=== PATIENT | male | born 1980 | race Caucasian/White ===

== ENCOUNTER 2019-11-15 16:13 | Observation (INO) | payer BC, SELFPAY ==
[2019-11-15] VITALS (7 sets, daily range): BP systolic 125–140; BP diastolic 81–91; PULSE 60–88; RESP 18–21; TEMP 35.6–36.6; O2SAT 97–99; BMI 29.1
--- NOTE | ~2019-11-15 | XR_ITS ---
EXAMINATION: XR chest 2V EXAM DATE: 11/15/2019 17:52 INDICATION: Mid chest pain. TECHNIQUE: Frontal and lateral projections of the chest obtained and reviewed. There is no prior alisha dy for comparison. FINDINGS: The lungs are clear. There are no pleural effusions. The cardiomediastinal silhouette is within normal limits. There is no pneumothorax suspected. The bones and soft tissues are unremarkab le. IMPRESSION: Normal chest x-ray exam. Reviewed, dictated and finalized at location A. IMPRESSION: Normal chest x-ray exam.
--- NOTE | 2019-11-15 16:19 | ECG_ITS ---
Measurements Intervals [place] Rate: 68 P: 55 MI: 168 QRS: 31 QRSD: 86 T: 10 QT: 376 QTc: 402 Interpretive Statements SINUS RHYTHM NORMAL ECG Electronically Signed On 11-15-2019 20:12:18 CDT by Mat Catalan D.O.
[2019-11-15 16:33] LABS: Basophils Absolute Auto 0.1 K/mm3 (0.0-0.1); Basophils Percent Auto 0.7 % (0.2-1.2); Eosinophils Absolute Auto 1.1 K/mm3 (0-0.3); Eosinophils Percent Auto 10.5 % (0-4.4); Hematocrit 47.9 % (42.0-52.0); Hemoglobin 16.4 g/dL (14.0-18.0); Immature Granulocyte Absolute 0.02 K/mm3 (0.00-0.031); Immature Granulocyte Percent A 0.2 % (0-0.5); Lymphocytes Absolute Auto 3.18 K/mm3 (0.9-3.2); Lymphocytes Percent Auto 31.8 % (18.3-44.2); Mean Corpuscular HGB Conc 34.2 g/dl (32-36); Mean Corpuscular Hemoglobin 28.6 pg (26-34); Mean Corpuscular Volume 83.4 fl (80-100); Monocytes Absolute Auto 0.6 K/mm3 (0.1-0.6); Neutrophils Absolute Auto 5.1 K/mm3 (1.3-6.7); Neutrophils Percent Auto 50.8 % (45.5-73.1); Platelet Count Result 290 k/mm3 (150-375); Red Blood Count 5.74 M/mm3 (4.6-6.20); Red Cell Distribution Width 12.4 % (11.5-14.5)
[2019-11-15 16:45] LABS: Anion Gap 9 mmol/L (8-16); Blood Urea Nitrogen 15 mg/dL (9-20); Calcium 9.2 mg/dL (8.4-10.2); Carbon Dioxide 28 mmol/L (22-30); Chloride 99 mmol/L (98-107); Estimated CRCL calculation 90 ml/min; Estimated Glomerular Filt Rate > 60; Glucose 112 mg/dL (75-110); Sodium 136 mmol/L (137-145)
[2019-11-15] MEDS: KETOROLAC 30 MG/ML VIAL (*BKC) IV PUSH (18:03)
--- NOTE | 2019-11-15 18:12 | ED.GENADULT ---
HPI - General Adult General Chief complaint: Shortness of Breath/Dyspnea Stated complaint: burning in chest, pcp wants cxr Time Seen by Provider: 11/15/19 17:48 Source: RN notes reviewed History of Present Illness HPI narrative: Patient presents emergency department from home for chest pain. Patient states since Wednesday has had pain in the upper midsternal chest that does not radiate. The pain is described as a burning and pressure is worse with exertion and improved with rest. Patient states he was seen by his PCP and referred to the ER for further evaluation. States he did have a negative COVID test. He denies any previous cardiac history denies any fevers or chills abdominal pain nausea vomiting or any other symptoms Related Data Home Medications Medication Instructions Recorded Confirmed No Home Medications 11/15/19 11/15/19 Allergies Allergy/AdvReac Type Severity Reaction Status Date / Time No Known Allergies Allergy Verified 11/15/19 17:35 Review of Systems Review of Systems: Narrative: Gen.: Denies fevers or chills Eyes: Denies eye pain or visual change ENT: Denies congestion Respiratory: Reports shortness of breath CV: Reports chest pain GI: Denies abdominal pain nausea, emesis or diarrhea denies burning, urgency, frequency or hematuria Musculoskeletal: Denies back pain or muscle pain Neuro: Denies numbness, tingling, weakness or focal weakness Skin: Denies rash Except as documented, all other systems reviewed and negative PMFSH Past Medical History Medical History (Updated 11/15/19 @ 18:48 by Ra Lancaster DO) Patient denies significant medical history Social History Social History (Updated 11/15/19 @ 18:12 by Ra Lancaster DO) Smoking status: Former smoker Exam Narrative: Exam Narrative: APPEARANCE: No acute distress, nontoxic, resting in bed EYES: EOMI HEENT: Normocephalic, atraumatic, OMM RESPIRATORY: No respiratory distress Clear to auscultation bilaterally with no rhonchi wheezing or rales. CARDIOVASCULAR: Regular rate and rhythm without murmurs rubs or gallops. ABDOMINAL: Soft, nontender, nondistended, no rebound or guarding MUSCULOSKELETAl: Moves all extremities. No clubbing, cyanosis or edema. NEURO: Awake and alert. Following commands, speech normal, no focal deficits SKIN:: Warm, dry. No rashes lesions or abrasions PSYCHIATRIC: Normal affect/mood, Course Course Emergency Course: Patient states chest pain is resolved at this time Discussed with Dr. Rashid presentation work-up. Agrees with admission of the chest pain center at this time Discussed with patient and family results of workup and diagnosis. Discussed need for admission. Patient and family understand and agree to current treatment plan Vital Signs Vital signs: Vital Signs Temperature 97.9 F 11/15/19 16:16 Pulse Rate 88 11/15/19 16:16 Respiratory Rate 20 11/15/19 16:16 Blood Pressure 140/91 H 11/15/19 16:16 Pulse Oximetry 98 11/15/19 16:16 Temperature 97.9 F 11/15/19 16:16 Pulse Rate 78 11/15/19 18:59 Respiratory Rate 21 H 11/15/19 18:59 Blood Pressure 136/87 11/15/19 18:59 Pulse Oximetry 98 11/15/19 18:59 Medical Decision Making Vital Signs Vital Signs: Vital Signs Temperature 97.9 F 11/15/19 16:16 Pulse Rate 88 11/15/19 16:16 Respiratory Rate 20 11/15/19 16:16 Blood Pressure 140/91 H 11/15/19 16:16 Pulse Oximetry 98 11/15/19 16:16 Temperature 97.9 F 11/15/19 16:16 Pulse Rate 78 11/15/19 18:59 Respiratory Rate 21 H 11/15/19 18:59 Blood Pressure 136/87 11/15/19 18:59 Pulse Oximetry 98 11/15/19 18:59 Lab Data Result diagrams: 11/15/19 16:27 11/15/19 16:27 Labs: Lab Results 11/15/19 11/15/19 11/15/19 Range/Units 16:27 16:27 16:27 WBC 10.0 (4.5-10.0) K/mm3 RBC 5.74 (4.6-6.20) M/mm3 Hgb 16.4 (14.0-18.0) g/dL Hct 47.9 (42.0-52.0) % MCV 83.4 (80-100) fl
[2019-11-15 18:30] LABS: D Dimer 0.27 ug/mL (<0.48)
[2019-11-15 18:51] LABS: Troponin I < 0.012 ng/mL (0.000-0.034)
[2019-11-15] MEDS: ASPIRIN 81 MG CHEWABLE TABLET 324 MG PO (18:57)
[2019-11-15 19:21] LABS: Cholesterol 232 mg/dL (0-200); HDL Direct 40 mg/dL; Triglycerides 212 mg/dL (<150)
[2019-11-15 19:32] LABS: LDL Cholesterol Direct 153 mg/dL
--- NOTE | 2019-11-15 21:54 | ECG_ITS ---
Measurements Intervals [place] Rate: 62 P: 37 VA: 173 QRS: 16 QRSD: 81 T: 5 QT: 389 QTc: 395 Interpretive Statements SINUS RHYTHM NONSPECIFIC T-WAVE ABNORMALITY- INFERIOR LEADS BORDERLINE ECG Electronically Signed On 11-16-2019 7:03:37 CDT by Mat Catalan D.O.
[2019-11-15 22:39] LABS: Troponin I < 0.012 ng/mL (0.000-0.034)
[2019-11-16] VITALS (17 sets, daily range): BP systolic 114–141; BP diastolic 67–87; PULSE 52–88; RESP 14–18; TEMP 35.9–36.6; O2SAT 97–100
--- NOTE | 2019-11-16 00:54 | ECG_ITS ---
Measurements Intervals [place] Rate: 56 P: 13 RI: 180 QRS: 49 QRSD: 86 T: 53 QT: 445 QTc: 433 Interpretive Statements SINUS BRADYCARDIA WITH SINUS ARRHYTHMIA BORDERLINE ECG Electronically Signed On 11-16-2019 7:04:21 CDT by Mat Catalan D.O.
[2019-11-16 01:31] LABS: Troponin I < 0.012 ng/mL (0.000-0.034)
--- NOTE | 2019-11-16 06:45 | PC.NURSE ---
KATHRIN DELAROSA, A ORTHOPEDIC CAST SPECIALIST STATUS PT., WAS TRANSFERRED FROM IMU 205.1 VIA WC TO ORTHOPEDIC CAST SPECIALIST 6. AWAKE AND ALERT, ORIENTED X 4. REPORTS ONLY INTERMITTANT UPPER CHEST BURN , WORSE W/ INSPIRATION. NO OTHER C/O PAIN. ORIENTED TO ORTHOPEDIC CAST SPECIALIST 6 AND PLAN OF CARE. WILL CONTINUE TO MONITOR. REPORT WAS RECEIVED FROM SLAVA GRAHAM RN.
--- NOTE | 2019-11-16 08:15 | PC.NURSE ---
DR. MENDEZ HERE TO SEE PT. CONDITION UPDATE GIVEN.
--- NOTE | 2019-11-16 08:15 | PM.IMHP ---
H&P: HPI History of Present Illness Date/Time: Date of service: 11/16/19 08:15 Chief complaint: chest pain Narrative: Dionisio Calixto is a 38 year old male with no significant past medical illness . 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 The burning chest sensation got worse when he takes a deep breath. The pain persisted. and was associated with mild dry cough. next day he visited his PCP and ordered COVID test that came out negative. that pain in his chest continued intermittently and this morning he still has it. denies fever, chills, sick contacts, lower limb edema. troponins x3 negative, EKG reviewed myself looks unremarkable and shows normal sinus rhythm. Chest x-ray reviewed myself is unremarkable. D-dimer negative family history: adopted. does not know his family. surgical history and medical history: none. Review of Systems Review of Systems: All systems reviewed & are unremarkable except as noted in HPI and below Constitutional: Constitutional: Denies chills, Denies fatigue, Denies fever(s), Denies headache(s) and Denies snoring Eyes: Eyes: Denies eye discharge and Denies loss of vision ENT: Denies dizziness, Denies headache(s), Denies nasal discharge and Denies sore throat Cardiovascular: Cardiovascular: Reports as per HPI, Reports chest pain, Denies syncope, Denies rapid heart rate, Denies leg edema, Reports dyspnea, Reports dyspnea on exertion, Denies orthopnea and Denies paroxysmal nocturnal dyspnea Respiratory: Respiratory: Denies chest congestion, Reports cough, Reports dyspnea, Reports dyspnea on exertion, Denies snoring and Denies wheezing Gastrointestinal: Gastrointestinal: Denies abdominal pain, Denies diarrhea, Denies nausea and Denies vomiting Genitourinary: Genitourinary: Denies hematuria, Denies dysuria, Denies flank pain and Denies urinary frequency Musculoskeletal: Musculoskeletal: Denies myalgias, Denies arthralgias and Denies joint swelling Neurologic: Denies Abnormal speech present, Denies dizziness, Denies syncope, Denies headache(s), Denies focal weakness and Denies loss of vision Psychiatric: Psychiatric: Denies anxiety and Denies depression Endocrine: Endocrine: Denies cold intolerance, Denies fatigue and Denies heat intolerance Hematologic/Lymphatic: Hematologic/Lymphatic: Denies easy bleeding and Denies easy bruising Allergic/Immunologic: Allergic/Immunologic: Denies urticaria and Denies wheezing PMFSH Past Medical History Medical History Patient denies significant medical history Social History Social History Smoking packs per day: 0.5 Smoking cigarettes per day: 10.0 Smoking status: Former smoker Tobacco type: cigarettes Second hand tobacco smoke exposure: Yes Additional smoking assessment comments: quit one year ago Substance use: never Substance use type: does not use Living arrangements: with family Spiritual care concerns: No Meds Home Medications and Allergies Home Medications Medication Instructions Recorded Confirmed Type No Home Medications 11/15/19 11/15/19 History Allergies Allergy/AdvReac Type Severity Reaction Status Date / Time No Known Allergies Allergy Verified 11/15/19 17:35 Vital Signs Vital Signs - 24 hr 11/15/19 16:16 11/15/19 18:08 11/15/19 18:59 Temperature 36.6 C Pulse Rate 88 68 78 Respiratory Rate 20 18 21 H Blood Pressure 140/91 H 133/81 136/87 Pulse Oximetry 98 99 98 11/15/19 20:07 11/15/19 21:43 11/15/19 21:54 Temperature 36.6 C Pulse Rate 71 69 60 Respiratory Rate 18 18 Blood Pressure 127/91 H 125/85 Pulse Oximetry 99 98 11/15/19 22:02 11/16/19 00:00 11/16/19 01:10 Temperature 35.6 C L 36.6 C Pulse Rate 63 56 L 54 L Respiratory Rate 18 18 Blood Pressure 13
[2019-11-16] MEDS: ASPIRIN 81 MG CHEWABLE TABLET PO (08:28)
[2019-11-16] MEDS: MAG HYDROX/AL HYDROX/SIMETH 30 ML UDC PO (08:28)
--- NOTE | 2019-11-16 08:28 | PC.NURSE ---
MYLANTA GIVEN TO PT. PO PER DIRECTIVE OF DR. MENDEZ FOR C/O BURNING UPPER CHEST.
--- NOTE | 2019-11-16 08:55 | PC.NURSE ---
CONDITION UPDATE GIVEN TO DR. MENDEZ RE: PT'S CHEST BURNING C/O AFTER TAKING MYLANTA. PT. STATES MYLANTA DOSE DID LITTLE TO NOTHING FOR UPPER CHEST BURNING SENSATION. ORDER RECEIVED FOR TREADMILL STRESS TEST. PT. NOTIFIED.
--- NOTE | 2019-11-16 09:04 | EST_ITS ---
Patient Info Name: Dionisio Calixto Age: 38 years : 1980 Gender: Male Ht: 73 in Wt: 220 lbs BSA: 2.29 m2 Exam Date: 11/16/2019 11:53 AM Exam Location: [facility] Stress Patient Status: Inpatient Admit Date: 11/15/2019 Staff Ordering Physician: Vannesa Long MD Attending Provider: PRINCESS MARSHALL Exercise Technologist: Liane Hinds RDCS Exam Type: CA stress test treadmill Study Info Indications R07.9 - Chest pain, unspecified A treadmill exercise stress test was performed. Summary 1. Greater than 1 mm of horizontal or downsloping ST depression - inf/lat leads. 2. Patient did have worsening chest burning with exercise. 3. Abnormal ST segment depression consistent with myocardial ischemia. Protocol: [place] Stress ECG Details Stage: REST Duration (min): 1 min : 37 sec Speed (mph): 0.0 Grade (%): 0 HR (bpm): 69 SBP (mmHg): 116 DBP (mmHg): 76 METS: --- Stage: REST Duration (min): 7 min : 31 sec Speed (mph): 0.0 Grade (%): 0 HR (bpm): 90 SBP (mmHg): 116 DBP (mmHg): 76 METS: --- Stage: STAGE 1 Duration (min): 1 min : 0 sec Speed (mph): 1.7 Grade (%): 10 HR (bpm): 95 SBP (mmHg): 116 DBP (mmHg): 76 METS: --- Stage: STAGE 1 Duration (min): 2 min : 0 sec Speed (mph): 1.7 Grade (%): 10 HR (bpm): 98 SBP (mmHg): 116 DBP (mmHg): 76 METS: --- Stage: STAGE 1 Duration (min): 3 min : 0 sec Speed (mph): 1.7 Grade (%): 10 HR (bpm): 94 SBP (mmHg): 120 DBP (mmHg): 66 METS: --- Stage: STAGE 2 Duration (min): 1 min : 0 sec Speed (mph): 2.5 Grade (%): 12 HR (bpm): 102 SBP (mmHg): 120 DBP (mmHg): 66 METS: --- Stage: STAGE 2 Duration (min): 2 min : 0 sec Speed (mph): 2.5 Grade (%): 12 HR (bpm): 107 SBP (mmHg): 126 DBP (mmHg): 64 METS: --- Stage: STAGE 2 Duration (min): 3 min : 0 sec Speed (mph): 2.5 Grade (%): 12 HR (bpm): 108 SBP (mmHg): 126 DBP (mmHg): 64 METS: --- Stage: STAGE 3 Duration (min): 1 min : 0 sec Speed (mph): 3.4 Grade (%): 14 HR (bpm): 117 SBP (mmHg): 123 DBP (mmHg): 61 METS: --- Stage: STAGE 3 Duration (min): 2 min : 0 sec Speed (mph): 3.4 Grade (%): 14 HR (bpm): 126 SBP (mmHg): 123 DBP (mmHg): 61 METS: --- Stage: STAGE 3 Duration (min): 3 min : 0 sec Speed (mph): 3.4 Grade (%): 14 HR (bpm): 126 SBP (mmHg): 142 DBP (mmHg): 69 METS: --- Stage: STAGE 4 Duration (min): 1 min : 0 sec Speed (mph): 4.2 Grade (%): 16 HR (bpm): 147 SBP (mmHg): 142 DBP (mmHg): 69 METS: --- Stage: STAGE 4 Duration (min): 2 min : 0 sec Speed (mph): 4.2 Grade (%): 16 HR (bpm): 157 SBP (mmHg): 162 DBP (mmHg): 77 METS: --- Stage: STAGE 4 Duration (m
--- NOTE | 2019-11-16 11:03 | ECHO_ITS ---
Patient Info Name: Dionisio Calixto Age: 38 years : 1980 Gender: Male Ht: 73 in Wt: 220 lbs BSA: 2.29 m2 HR: 77 bpm BP: 124 / 59 mmHg Heart Rhythm: Sinus Arrhythmia Technical Quality: Good Exam Date: 11/16/2019 11:19 AM Exam Location: [facility] Exam Room: [facility] Patient Status: Inpatient Admit Date: 11/15/2019 Staff Ordering Physician: Vannesa Long MD Perinatal Tech: Hayde Mesa RDCS Attending Provider: Krystle Rashid MD Referring Physician: Ethan MCKEON; Exam Type: CA echo doppler color flow Study Info Indications - chest discomfort Complete two-dimensional, color flow and Doppler transthoracic echocardiogram is performed. Summary 1. Left ventricular chamber dimension is normal. 2. Left ventricular systolic function is mildly reduced, estimated at 50-55%. 3. There is no increased left ventricular wall thickness. 4. The left ventricular diastolic function is normal. 5. Global longitudinal strain is normal at -18 %. 6. The basal inferoseptal, and mid inferoseptal are hypokinetic. 7. There is mild tricuspid valve regurgitation. Left Ventricle Left ventricular chamber dimension is normal. Left ventricular systolic function is mildly reduced, estimated at 50-55%. There is no increased left ventricular wall thickness. The left ventricular diastolic function is normal. Global longitudinal strain is normal at -18 %. The basal inferoseptal, and mid inferoseptal are hypokinetic. All other allred appear normal. Right Ventricle Right ventricular chamber dimension is normal. Right ventricular systolic function is normal. Left Atria Left atrial chamber dimension is normal. Right Atria Right atrial chamber dimension is normal. Atrial Septum Intact interatrial septum visualized by color flow imaging. Aortic Valve The aortic valve is trileaflet. There is no aortic valve sclerosis. There is no aortic valve stenosis. There is trace aortic valve regurgitation. Pulmonic Valve The pulmonic valve is normal. There is no pulmonic valve stenosis. There is trace pulmonic regurgitation. Mitral Valve The mitral valve has normal leaflets. There is no mitral valve stenosis. There is trace mitral valve regurgitation. Tricuspid Valve The tricuspid valve leaflets are normal. There is no significant tricuspid valve stenosis. There is mild tricuspid valve regurgitation. No pulmonary hypertension, estimated pulmonary arterial systolic pressure is 27 mmHg. Pericardium/Pleural The pericardium appears normal. There is trivial pericardial effusion. Inferior Vena Cava Normal inferior vena cava with >50% collapse upon inspiration consistent with normal right atrial pressure, 10 mmHg. Aorta The aortic root size at the sinus of Valsalva is normal. The prox ascending aorta size is normal. Left Ventricular Outflow Tract Name Value Normal LVOT 2D LVOT Diameter 2.2 cm LVOT Doppler LVOT Peak Gradient 4 mmHg LVOT Mean Gradient 3 mmHg LVOT VTI 21 cm LVOT V
--- NOTE | 2019-11-16 11:05 | PC.NURSE ---
ECHO IN PROGRESS BEDSIDE IN STOPPER SETTER 6. PRESENT.
--- NOTE | 2019-11-16 11:35 | PC.NURSE ---
DOWN VIA WC TO CARDIOLOGY FOR TREADMILL STRESS TEST.
--- NOTE | 2019-11-16 12:25 | PC.NURSE ---
RETURNS TO TELEPHONE CLERK 6 S/P STRESS TEST. VOICES NO C/O.
--- NOTE | 2019-11-16 15:15 | PC.NURSE ---
PRINCESS AMAYA LYE MACHINE OPERATOR SPOKE W/ PT. AND HIS RE: RESULTS OF STRESS TEST AND ECHO. EXPLAINED NEED FOR CARDIAC CATH PLANNED FOR TOMORROW AM W/ DR. SIEGEL.
--- NOTE | 2019-11-16 17:55 | PC.NURSE ---
REPORT HAS BEEN CALLED TO RAGHAV Olivares RN IN IMU. PT. TRANSFERRED TO IMU 210 OUTSIDE SALES REPRESENTATIVE OVERFLOW WITH ALL PERSONAL BELONGINGS. PT. IS TO HAVE C IN W/ DR. SIEGEL; CONSENT HAS BEEN SIGNED. DENIES PAIN AT THIS TIME. VOICES NO C/O. AT SIDE.
--- NOTE | 2019-11-16 19:04 | PC.NURSE ---
1800- received pt from [facility]-to room 210- remains [facility] status--a/o x3 ; denies any c/o pain- oriented to room and routines of floor -call light in reach
[2019-11-17] VITALS (14 sets, daily range): BP systolic 105–131; BP diastolic 60–79; PULSE 56–76; RESP 14–18; TEMP 36.1–36.6; O2SAT 96–99
[2019-11-17 05:35] LABS: Anion Gap 6 mmol/L (8-16); Blood Urea Nitrogen 16 mg/dL (9-20); Calcium 8.8 mg/dL (8.4-10.2); Carbon Dioxide 31 mmol/L (22-30); Chloride 99 mmol/L (98-107); Estimated CRCL calculation 83 ml/min; Estimated Glomerular Filt Rate > 60; Glucose 89 mg/dL (75-110); Potassium 4.2 mmol/L (3.4-5.0); Sodium 136 mmol/L (137-145)
[2019-11-17] MEDS: ASPIRIN 81 MG CHEWABLE TABLET PO (07:56)
--- NOTE | 2019-11-17 09:26 | WPDMODSED ---
Moderate Sedation Note-Pt Data Patient Data Diagnosis: chest pain, abnormal stress test Present Complaint: 38-year-old man who experienced chest pain working in the heat. Following admission his biomarkers and ECG were unremarkable. A stress test however was felt to show evidence of stress-induced ischemia with ST segment depression. In this setting and angiogram has been recommended Procedure to be performed/Plan: left heart catheterization Allergies Allergy/AdvReac Type Severity Reaction Status Date / Time No Known Allergies Allergy Verified 11/15/19 17:35 Home Medications Medication Instructions Recorded Confirmed Type No Home Medications 11/15/19 11/15/19 History Current Medications: Active Medications Acetaminophen (Tylenol Tablet) 650 mg PO Q4H PRN PRN Reason: Mild Pain (1-3) Al Hydrox/Mg Hydrox/Simethicone (Mylanta) 30 ml PO Q6H PRN PRN Reason: Indigestion Last Admin: 11/16/19 08:28 Dose: 30 ml Documented by: Aspirin (Aspirin Chewable) 81 mg PO DAILY@0800 [place] Last Admin: 11/17/19 07:56 Dose: 81 mg Documented by: Nitroglycerin (Nitrostat Subl 0.4 Mg (1/150)) 0.4 mg SUBLINGUAL Q5MIN PRN PRN Reason: Chest Pain Ondansetron HCl (Zofran Inj) 4 mg IV PUSH Q6H PRN PRN Reason: Nausea And Vomiting Sedation/Anesthesia: No previous sedation/anesthesia problems (including family history). [facility] Past Medical History Medical History Patient denies significant medical history Social History Social History Smoking packs per day: 0.5 Smoking cigarettes per day: 10.0 Smoking status: Former smoker Tobacco type: cigarettes Second hand tobacco smoke exposure: Yes Additional smoking assessment comments: quit one year ago Substance use: never Substance use type: does not use Living arrangements: with family Spiritual care concerns: No Mod Sed Physical Exam Physical Exam Pre Procedural Exam: Normal: Throat, Airway, Lungs, Heart Size, Heart Rate, Heart Rhythm, Neuro Exam and Extremities and Variation: Appearance ( overweight white male no apparent distress) Hours since solid foods: 12 Hours since liquid intake: 12 Internal Medicine - PN: Obj Da Vital Signs Vital Signs: Vital Signs - 24 hr 11/16/19 10:00 11/16/19 12:30 11/16/19 12:32 Temperature 36.4 C L Pulse Rate 66 85 88 Respiratory Rate 14 Blood Pressure 120/81 Pulse Oximetry 97 11/16/19 14:00 11/16/19 16:00 11/16/19 17:50 Temperature 36.6 C Pulse Rate 72 83 74 Respiratory Rate 16 Blood Pressure 114/69 Pulse Oximetry 97 11/16/19 19:29 11/16/19 20:00 11/16/19 22:00 Temperature 36.2 C L Pulse Rate 66 81 57 L Respiratory Rate 18 Blood Pressure 141/67 H Pulse Oximetry 100 11/16/19 23:41 11/17/19 00:00 11/17/19 02:00 Temperature 35.9 C L Pulse Rate 57 L 68 65 Respiratory Rate 18 Blood Pressure 134/77 Pulse Oximetry 99 11/17/19 04:00 11/17/19 04:42 11/17/19 05:45 Temperature 36.1 C L Pulse Rate 56 L 60 65 Respiratory Rate 18 Blood Pressure 127/60 Pulse Oximetry 99 11/17/19 08:00 Temperature 36.3 C L Pulse Rate 70 Respiratory Rate 16 Blood Pressure 108/72 Pulse Oximetry 98 Intake/Output Intake/Output: Intake & Output 11/14/19 11/15/19 11/16/19 11/17/19 23:59 23:59 23:59 23:59 Intake Total 480 200 Output Total 50 150 Balance -50 330 200 Meds/Results Medications: Active Medications Generic Name Dose Route Start Last Admin Trade Name Светлана PRN Reason Stop Dose Admin Acetaminophen 650 mg 11/15/19 18:54 Tylenol Tablet PO Q4H PRN Mild Pain (1-3) Al Hydrox/Mg Hydrox/Simethicone 30 ml 11/15/19 18:54 11/16/19 08:28 Mylanta PO 30 ml Q6H PRN Administration Indigestion Aspirin 81 mg 11/16/19 08:00 11/17/19 07:56 Aspirin Chewable PO 81 mg DAILY@0800 [place] Administration Nitroglyc
--- NOTE | 2019-11-17 11:38 | P.PCNCC_ITS ---
Cardiac Cath Procedure Note Date of procedure:: 11/17/19 Performing physician:: Dionisio Quintanilla MD Indication:: Chest pain, abnormal stress test Brief clinical history:: this is a 38-year-old man with had chest pain since Wednesday of this week. He was admitted yesterday yesterday for evaluation of this. Biomarkers and ECGs have been negative. A exercise stress electrocardiogram was felt to be abnormal with ST segment depression leading to the recommendation to perform an angiogram. Procedure Procedure performed:: left heart catheterization with left ventriculography and coronary angiography Angio-Seal to right femoral artery Sedation/Medication given:: fentanyl 50 mg Versed 2 mg case start time 11:18 a.m. case end time 11:31 a.m. sedation provided by Roshni Hernández RN, trained observer Access site:: right femoral Estimated blood loss:: 10-20 cc Procedure note:: patient was brought to the cardiac catheterization lab in the postabsorptive state the right femoral triangle was prepared in the usual fashion. Using the modified Seldinger technique the right common femoral artery was punctured and a 5 Surinamese vascular sheath was placed. After this left heart catheterization was carried out a 5 Sur[place]amese angled pigtail catheter was used to perform a left ventriculogram in the FERRARI projection and document left-sided hem odynamics. After this the patient underwent left coronary angiography using a 5 [place]amese FL4 catheter and then right coronary angiography using a 5 [place]inamese JR4 catheter. The cine angiograms were then reviewed and the case was terminated. Angiogram was done of the femoral artery through the sheath after this a 6 [place]amese Angio-Seal device was deployed at the puncture site with good hemostatic result. The patient left the airport maintenance laborer in stable condition and had no complications that were evident and no evidence of a groin hematoma. Findings:: Hemodynamics: Central aortic pressure is 117/66 left ventricle 118/0 end-diastolic pressure of 10. There is no gradient on pullback across the aortic valve. the left ventricle is normal in size all segments contract appropriately there were no wall motion abnormalities. The ejection fraction is visually estimated to be 50% Left main coronary artery is short and widely patent the LAD is a large caliber vessel extending down to around the apex. There is no significant disease in the LAD there is minimal luminal irregularity in the proximal 3rd near the septal perforating branch. The circumflex is a moderate caliber artery giving rise to 1 large marginal branch. The midportion of this OM has minimal luminal irregularity as well but no significant lesion is seen the right coronary artery is large in caliber dominant to the posterior circulation the right coronary artery is smooth and angiographically normal in appearance Conclusion:: 1. angiographic evidence of minimal coronary plaquing in the proximal LAD and mid OM branch as described above this is not flow-limiting in any fashion 2. large caliber right coronary artery which is dominant and angiographically normal 3. normal left ventricular systolic function 4. Angio-Seal to right femoral artery Dionisio Quintanilla MD FACC
--- NOTE | 2019-11-17 11:55 | SUR.PHASEII ---
1145-pt has returned from the CCL after an LHC. No distress noted. AOx4. Angioseal in place, groin soft and non-tender, no evidence of bleeding or hematoma noted. Strong right pedal pulse noted. Will continue to monitor.
--- NOTE | 2019-11-17 12:46 | PC.NURSE ---
Transferred patient to Chest Pain center for cardiac cath. Cath was clean and chest pain will discharge patient home.
--- NOTE | 2019-11-17 14:16 | SUR.PHASEII ---
1345-pt up to a chair. Groin checked before and after. Soft and non-tender, no evidence of bleeding or hematoma noted. Strong right pedal pulse noted. Will continue to monitor.
--- NOTE | 2019-11-17 15:12 | SUR.PHASEII ---
1445-pt given D/C orders and instructions. Questions answered and verbalized understanding. AOx4. Groin soft and non-tender, no evidence of bleeding or hematoma noted. Strong right pedal pulse noted. Taken via wheelchair to waiting vehicle. No distress noted or verbalized noted to time of departure.
--- NOTE | 2019-11-23 17:07 | PM.DS ---
DS: Admitting Diagnosis Admitting Diagnosis Admitting Diagnosis: chest pain Date of admission 11/15/2019 DS: Discharge Diagnosis Discharge Diagnosis (1) Chest pain: Code(s): R07.9 - Chest pain, unspecified Status: Acute Assessment and Plan: Atypical chest pain. Troponin negative x3. Normal EKG. Stress with greater than 1 mm horizontal or downsloping ST segments in the inferior/lateral leads. Echocardiogram: EF 50-55% with basal inferior, mid inferoseptal hypokinesis. Cardiac catheterization:angiographic evidence of minimal coronary plaquing in the proximal LAD and mid OM branch that is not flow-limiting in any fashion. Large caliber right coronary artery which is dominant and angiographically normal. Normal left ventricular systolic function. DS: Summary Hospital Course Reason for hospitalization: Chest pain Hospital Course: 38-year-old male admitted with chest discomfort. Troponin negative x3. EKG was unremarkable. He underwent a treadmill stress test which was positive for ischemia. Echocardiogram revealed mild wall motion abnormality with normal ejection fraction. He underwent cardiac catheterization on 11/17/2019 with the findings of angiographic evidence of minimal coronary plaquing in the proximal LAD and mid OM branch that is not flow-limiting in any fashion. Large caliber right coronary artery which is dominant and angiographically normal. Normal left ventricular systolic function. Angio-Seal was deployed. He was discharged home in stable and pain-free condition. Status at Discharge Functional status at discharge: independent ambulation Overall status at discharge: patient is back to baseline Time Spent with Patient Time attestation: Total time spent providing and/or coordinating discharge services: Time spent: Less than 30 minutes Exam Const: General: cooperative, healthy appearing, comfortable, no acute distress and well developed Nutritional Appearance: well nourished Orientation/consciousness: patient oriented x3 HENMT: Head: normal to inspection, normocephalic and atraumatic Ears: hearing grossly normal bilaterally and external ears normal General nose exam: Normal external nose present and Normal nares present Face and sinus: normal facial exam and no erythema Mouth: Yes moist mucous membranes Eyes: General: appearance normal, both eyes and all related structures Eyelids: eyelids normal Sclera: sclerae normal Neck: Neck: normal visual inspection and full ROM Carotids: bruit Lymphatic: lymphedema Chest: Chest palpation & inspection: normal inspection of the chest Resp: Effort & Inspection: normal respiratory effort and not labored Auscultation: clear to auscultation bilaterally, no crackles, no rales and no wheezes Cardio: Jugular venous distension: no JVD Rate: regular rate Rhythm: regular rhythm Heart sounds: S1 normal heart sound present, S2 normal heart sound present, no click, no gallops, no murmurs and no rubs GI: Inspection: normal to inspection and non-distended Auscultation: normal bowel sounds : General: Yes CVA tenderness Skin: General skin exam: normal color, no erythema and no pallor Lesions: no lesions Rashes: no rashes Neuro: General: patient oriented x3 and moves all extremities Cranial nerves: Yes facial symmetry Speech: normal speech and No Abnormal speech present Motor exam (neuro): 5/5 motor strength present throughout Extrem: General: normal to inspection and full ROM Psych: Appearance: grossly normal, well kempt and disheveled Affect: normal affect Discharge Plan Discharge Attending physician on discharge: Dionisio Quintanilla Consulting providers: Leatha Lara ; Vic Díaz ; Vannesa Long ; Dionisio Quintanilla ; Silvano Santos ; Mat Catalan Discharging Clinician: Leatha Lara Patient Disposition: Home, Self-Care Activity: other - see discharge instructions D
== END 2019-11-17 14:45 | disposition home or self-care (01) ==
LOC: ANHED 19:05 → ANHIMU 21:29 → ANHCPC 11-16 06:17 → ANHIMU 11-16 17:58 → ANHCPC 11-17 12:38
PROVIDERS: Nurse Practitioner Adult Health; Specialist; Admitting Provider Internal Medicine Cardiovascular Disease; Emergency Provider Emergency Medicine; Visit Provider Internal Medicine Cardiovascular Disease
PROC: 4A023N7 Measurement of Cardiac Sampling and Pressure, Left Heart, Percutaneous Approach (ICD-10-PCS; CPT 93452; principal; 2019-11-17 07:30)
DX: R07.89 Other chest pain (principal); Z87.891 Personal history of nicotine dependence
CPT/HCPCS: 36415; 71046; 80048; 80061; 84484; 85025; 85380; 93005; 93017; 93306; 93458; 96374; 99285; A9270; C1760; C1887; C1894; G0269; G0378; J1644; J1885; J2250; J3010; J7040

== ENCOUNTER 2022-01-20 11:05 | Emergency (ER) | payer BC, SELFPAY ==
[2022-01-20 11:37] VITALS: BP 121/84; PULSE 112; RESP 16; TEMP 37.8; O2SAT 97
--- NOTE | 2022-01-20 12:08 | ED.URI ---
HPI - URI/Sore Throat General Chief Complaint: Upper Respiratory Infection Stated Complaint: uri Time Seen by Provider: 01/20/22 12:10 Source: patient and old records reviewed Mode of arrival: ambulatory Limitations: no limitations History of Present Illness HPI Narrative: 41-year-old male who presents to [facility] care with complaints of 1 week duration of fevers, body aches, head congestion, feeling hot and cold. Patient reports that he has been taking Tylenol, Sudafed, Mucinex for his symptoms. He reports that he has also had cough and today this morning he had temperature of 103F. Patient denies any sore throat, reports some ear fullness bilaterally, sinus drainage. He has also taken some NyQuil and DayQuil for his symptoms. Patient reports no ill contacts. MD elicited complaint: cough and sore throat Onset (ago): week(s) (1) Pain scale (0-10): 3 Treatments prior to arrival: acetaminophen, cold medicine and other (Mucinex) Related Data Allergies Allergy/AdvReac Type Severity Reaction Status Date / Time No Known Allergies Allergy Verified 01/20/22 11:32 Review of Systems Review of Systems: CONSTITUTIONAL:Reports malaise, chills, sweats, or fever. EYES: Denies visual changes, redness, or discharge. ENT: Reports rhinorrhea, congestion, sinus pain, ear fullness stated with no sore throat. CARDIOVASCULAR: Denies chest pain, palpitations, or edema. RESPIRATORY: Reports cough.? Denies dyspnea. GASTROINTESTINAL: Denies abdominal pain, nausea, vomiting, diarrhea SKIN: Denies rash or itching. MUSCULOSKELETAL:Reports myalgia. NEUROLOGIC: Denies headache. All systems reviewed & are unremarkable except as noted in HPI and below PMFSH Past Medical History Medical History Patient denies significant medical history Social History Social History (Updated 01/20/22 @ 12:09 by Kaycee Azar NP) Smoking packs per day: 0.5 Smoking cigarettes per day: 10.0 Smoking status: Former smoker Tobacco type: cigarettes Second hand tobacco smoke exposure: Yes Additional smoking assessment comments: quit one year ago Substance use: never Substance use type: does not use Living arrangements: with family Gender identity (if verbalized by the patient): Male Spiritual care concerns: No Comments At time of signature, agree with nursing past medical, surgical, social and family history. There is no relevant family history pertinent to the presenting complaint Exam Narrative: GENERAL: Well-appearing, well-nourished, and in no acute distress. HEAD: Normocephalic EYES: PERRLA, conjunctivae clear ENT: Nares clear, turbinates edematous and erythematous, clear discharge. Mucous membranes moist.Left TM red and bulging no discharge from canal. Right TM pearly short with dull light reflex ; no tragal tenderness. Oropharynx erythematous without lesions. Tonsils not enlarged and without exudate, no drooling, no hoarseness, no trismus, uvula midline. NECK: Supple. No lymphadenopathy CHEST: Clear to auscultation, breath sounds equal. No wheezing, rhonchi, rales, or stridor. No respiratory distress, speaks in full sentences.cough noted SAO2 97% on room air HEART: Regular rate and rhythm. No murmur heard. SKIN: Warm, dry, no rash. NEURO: Alert and oriented x3. PSYCH: Normal mood and affect Course Course Emergency Course: Patient is aware of diagnosis, understands and agrees to treatment plan.? Anticipatory guidance given.? Patient agrees to follow-up as directed and is aware of reasons to seek care at the emergency department. Portions of this record may have been created with voice recognition software Level of Care: Express Care Visit Vital Signs Vital signs: Vital Signs Temperature 37.8 C H 01/20/22 11:37 Pulse Rate 112 H 01/20/22 11:37 Respiratory Rate 16 01/20/22 11:37 Blood Pressure 121/84 01/20/22 11:37 Pulse Oximetry 97 01/03
== END 2022-01-20 12:22 | disposition home or self-care (01) ==
PROVIDERS: Emergency Provider Registered Nurse
DX: H65.02 Acute serous otitis media, left ear (principal); J06.9 Acute upper respiratory infection, unspecified; Z20.822 Contact with and (suspected) exposure to COVID-19; Z87.891 Personal history of nicotine dependence
CPT/HCPCS: 87426; 87804; 99213; C9803; G0463